=== PATIENT | male | born 1990 | race Caucasian/White ===

== ENCOUNTER 2025-07-17 11:42 | Emergency (ER) | payer OTHER, SELFPAY ==
[2025-07-17] VITALS (7 sets, daily range): BP systolic 108–127; BP diastolic 56–73; PULSE 50–58; RESP 16–18; TEMP 36.7; O2SAT 96–98; BMI 32.1
--- NOTE | 2025-07-17 11:58 | PC.NURSE ---
c-collar placed in triage for midline neck tenderness
[2025-07-17] MEDS: ACETAMINOPHEN 325 MG TABLET 975 MG PO (12:04)
--- NOTE | 2025-07-17 14:49 | PC.NURSE ---
[facility] here to transport patient to [facility] for imaging.
--- NOTE | 2025-07-17 16:20 | ED.FALL ---
HPI - Fall <Naif Luciano MD - Last Filed: 07/17/25 16:31> General Chief Complaint: Fall Stated Complaint: Fell 7 days ago, hit head, memory issues Time Seen by Provider: 07/17/25 12:19 Source: patient Mode of arrival: Ambulatory History of Present Illness HPI Narrative: 34-year-old male with no significant past medical surgical history presenting 7 days after an accidental fall with occipital head strike. Patient says since then he has had severe pain to his occiput as well as superior cervical spine. Has described some blurry vision as well as episodes of amnesia. Denies fevers, chills, vomiting, diarrhea, abdominal pain, chest pain, shortness of breath, dizziness, headache, and urinary symptoms. Review of Systems <Naif Luciano MD - Last Filed: 07/17/25 16:31> Review of Systems ROS Unobtainable: All systems reviewed & are unremarkable except as noted in HPI and below Patient History <Naif Luciano MD - Last Filed: 07/17/25 16:31> Social History Smoking Status: Current every day smoker Smoking Status: Current every day smoker tobacco type: cigarettes Exam <Naif Luciano MD - Last Filed: 07/17/25 16:31> Initial Vital Signs Initial Vital Signs: Vital Signs Temperature 98.0 F 07/17/25 11:48 Pulse Rate 58 L 07/17/25 11:48 Respiratory Rate 16 07/17/25 11:48 Blood Pressure 117/73 07/17/25 11:48 Pulse Oximetry 98 07/17/25 11:48 Oxygen Delivery Method Room Air 07/17/25 11:48 Const General: cooperative, healthy appearing, comfortable, well developed and well hydrated Nutritional Appearance: average body habitus [facility] Head: normal to inspection Ears: external ears normal Nose: external nose normal and nares normal Face and sinus: sinuses nontender, face symmetric, ecchymosis not on the right, not on the left and not bilaterally, erythema not on the right, not on the left and not bilaterally and edema not on the right, not on the left and not bilaterally Mouth: lip normal Eyes General: Yes appearance normal, both eyes and all related structures Eyelids: eyelids normal Sclera: sclerae normal Pupils: PERRL Neck Other: Tenderness noted midline to the occiput as well as superior cervical spine. Patient in cervical collar for precautions. Resp Effort & Inspection: normal respiratory effort and able to speak in complete sentences Cardio Rate: regular rate Rhythm: regular rhythm Pulses: radial pulses present GI Inspection: normal to inspection and non-distended General: bimanual renal exam normal bilaterally Back/Spine/Pelvis Back: normal to inspection Skin General: no rashes or lesions noted Neuro General: patient alert, patient awake, patient oriented x3, gait normal, moves all extremities, normal light touch, pain and propioception, no focal motor deficits and CN's II-XI intact bilaterally Cognition: normal cognition Speech: speech normal Gait: normal gait Motor: muscle tone normal throughout Sensory Exam: no sensory deficits noted Extrem General: normal to inspection Psych Appearance: grossly normal Mental Status: mental status grossly normal Speech and Movement: speech and movement normal Mood: congruent mood Attitude: cooperative Thought Process: normal Thought Content: normal Judgment: judgment good <Nimo Pavon DO - Last Filed: 07/17/25 23:27> Initial Vital Signs Initial Vital Signs: Vital Signs Temperature 98.0 F 07/17/25 11:48 Pulse Rate 58 L 07/17/25 11:48 Respiratory Rate 16 07/17/25 11:48 Blood Pressure 117/73 07/17/25 11:48 Pulse Oximetry 98 07/17/25 11:48 Oxygen Delivery Method Room Air 07/17/25 11:48 Course <Naif Luciano MD - Last Filed: 07/17/25 16:31> Course Course Narrative: Pt presents with blunt trauma. CXR considered given possibility of PTX/pulmonary contusion/rib fx, however, deferred due to reassuring history and physical exam. CT brain to r/o intracranial hemorrhage/injury/skull fracture CT C-spine to r/o C-spine fx/dislocation/injury, CT ab/pelvis/chest considered to r/o intra-abdominal/intrathoracic injury including pulmonary contusion/PTX/renal injury/colon injury/liver injury/spleen injury, etc. however, deferred due to reassuring history and physical exam. Labs considered to r/o severe anemia, electrolyte abnormality (including hypokalemia, hyperkalemia, hypernatremia, hyponatremia, hyperglycemia, hypoglycemia, etc), thrombocytopenia. However, deferred due to reassuring history and physical exam Signed out to Dr. Pavon pending imaging Orders Ordered: Discontinued Medications Acetaminophen (Acetaminophen 325 Mg Tablet) 975 mg PO NOW ONE Stop: 07/17/25 11:59 Last Admin: 07/17/25 12:04 Dose: 975 mg Documented By: EB Vital Signs Vital signs: Vital Signs - 8 hr 07/17/25 17:30 07/17/25 18:35 Pulse Rate 52 L 54 L Respiratory Rate 16 18 Blood Pressure 108/60 109/56 L Pulse Oximetry 97 96 Oxygen Delivery Method Room Air Room Air <Nimo Pavon, - Last Filed: 07/17/25 23:27> Orders Ordered: Discontinued Medications Acetaminophen (Acetaminophen 325 Mg Tablet) 975 mg PO NOW ONE Stop: 07/17/25 11:59 Last Admin: 07/17/25 12:04 Dose: 975 mg Documented By: EB Vital Signs Vital signs: Vital Signs - 8 hr 07/17/25 17:30 07/17/25 18:35 Pulse Rate 52 L 54 L Respiratory Rate 16 18 Blood Pressure 108/60 109/56 L Pulse Oximetry 97 96 Oxygen Delivery Method Room Air Room Air MDM - Fall <Nimo Pavon, - Last Filed: 07/17/25 23:27> MDM Narrative Medical decision making narrative: 07/17/25 Dr. Pavon: Patient signed out to myself by Dr. Luciano. Patient was sent for ship and return for CT imaging as are CT scanner was down for head CT and CT cervical spine. Was out of the department for some time. Patient is seen and evaluated by myself cervical collar was cleared here in the department after CT imaging. Patient notes injury around 7 days ago with the occipital head strike, patient notes some brief loss of consciousness has had persistent symptoms that do seem very much consistent with a concussion. He states symptoms have not been worsening but are not improving he [facility] [employer] [facility] who referred him here for further workup. He has a follow up in the upcoming week. Head CT without contrast shows no acute intracranial pathology outside report from [facility] was faxed reviewed by myself. CT cervical spine shows no acute displaced fracture or traumatic subluxation. Discharge Plan Departure Patient Disposition: Home Clinical Impression: Acute head trauma, Concussion Instructions: DI for Concussion Activity Restrictions/Additional Instructions: Follow up with your physician. Your CT imaging of your head as well as cervical spine do not show any acute intracranial pathology, bleed or fracture. I would recommend decreased activity until your symptoms have improved. No contact sports or similar activities until you are completely asymptomatic for 7 days. Please return if you have new or worsening headaches, any changes to mentation, vomiting, passing out, new numbness tingling or weakness, loss of bowel or bladder control or any other new or concerning changes. Referrals: ProviderMayda [Primary Care Provider, Family Practice] Stand Alone Forms: Patient Portal/API, Work Release Note
== END 2025-07-17 18:35 | disposition home or self-care (01) ==
PROVIDERS: Emergency Provider Emergency Medicine
DX: S06.0X0A Concussion without loss of consciousness, initial encounter (principal); R41.3 Other amnesia; F17.210 Nicotine dependence, cigarettes, uncomplicated; R11.2 Nausea with vomiting, unspecified; W19.XXXA Unspecified fall, initial encounter
CPT/HCPCS: 99283